=== PATIENT | male | born 1985 ===

== ENCOUNTER 2018-01-10 15:00 | Emergency (ER) | payer OTHER ==
[~2018-01-10] VITALS: Ht 175.3 cm; Wt 98.4 kg
[2018-01-10 15:07] VITALS: TEMP 36.6; Ht 175.3 cm; Wt 98.4 kg
[2018-01-10] MEDS ORDERED: IBUPROFEN 800 MG TAB PO STA (15:20)
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
--- NOTE | 2018-01-10 15:57 | DIAGNOSTIC IMAGING REPORT ---
R FINGER(S) MIN 2 VIEWS ROUTINE HISTORY: 32 years-old Male right 5th finger injury acute injury of the right fifth finger COMPARISON: None available TECHNIQUE: 3 views of the right fifth finger FINDINGS: There is complete dislocation of the fifth PIP joint which is displaced dorsally 9 mm and medially 2 mm with 5 mm apposition. Moderate associated soft tissue swelling without acute fracture. IMPRESSION: Complete dislocation of the fifth PIP joint with moderate soft tissue swelling. The above report was generated using voice recognition software. It may contain grammatical, syntax or spelling errors. Electronically signed by: Adair Villaseñor M.D. 01/10/2018 3:56 PM Dictated Date/Time: 01/10/2018 3:54 PM
--- NOTE | 2018-01-10 16:38 | DIAGNOSTIC IMAGING REPORT ---
R FINGER(S) MIN 2 VIEWS ROUTINE HISTORY: 32 years-old Male post-reduction, right 5th finger status post reduction of right fifth PIP joint COMPARISON: Finger radiographs of same day at 3:22 PM TECHNIQUE: 3 views of the right fifth digit FINDINGS: There is satisfactory anatomic alignment of the right fifth PIP joint status post reduction. No acute fracture identified. Residual soft tissue swelling is noted without opaque foreign body. IMPRESSION: Satisfactory alignment of the right fifth PIP joint status post reduction without acute fracture. The above report was generated using voice recognition software. It may contain grammatical, syntax or spelling errors. Electronically signed by: Adair Villaseñor M.D. 01/10/2018 4:37 PM Dictated Date/Time: 01/10/2018 4:36 PM
[2018-01-10 16:45] VITALS: BP 118/81; PULSE 66; O2SAT 98
== END 2018-01-10 16:47 | disposition home or self-care (01) ==
LOC: C.EDB 15:02 → C.EDD 16:47
DX: S63.286A Dislocation of proximal interphalangeal joint of right little finger, initial encounter (principal); W51.XXXA Accidental striking against or bumped into by another person, initial encounter; Y93.67 Activity, basketball; Y92.149 Unspecified place in prison as the place of occurrence of the external cause